=== PATIENT | female | born 1995 | race Native Hawaiian/Other Pacific Islander ===

== ENCOUNTER 2020-01-12 01:04 | Emergency (ER) | payer MEDICAID ==
[~2020-01-12] VITALS: Ht 175.3 cm; Wt 48.6 kg
[2020-01-12 01:08] VITALS: TEMP 98.4
[2020-01-12] MEDS ORDERED: FLAGYL500 MG PO (02:57)
[2020-01-12 03:10] VITALS: BP 114/66; PULSE 65
== END 2020-01-12 03:11 | disposition home or self-care (01) ==
LOC: COL.ER 01:04
DX: O03.9 Complete or unspecified spontaneous abortion without complication (principal); Z3A.09 9 weeks gestation of pregnancy; Z87.891 Personal history of nicotine dependence

== ENCOUNTER → 2020-01-12 | Outpatient (CLI) | payer MEDICAID ==
[~2020-01-12] MED LIST: FLAGYL500 MG PO
== END ==
LOC: COL.RAD 13:16
DX: O26.851 Spotting complicating pregnancy, first trimester (principal); Z3A.08 8 weeks gestation of pregnancy

== ENCOUNTER 2023-03-10 16:41 | Outpatient (CLI) | payer MEDICAID ==
[~2023-03-10] VITALS: Ht 172.7 cm; Wt 65.5 kg
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
[2023-03-10 17:30] VITALS: BP 111/56; PULSE 63; TEMP 97.7
[2023-03-10] MEDS ORDERED: PRENATAL (17:44)
[2023-03-10] MEDS ORDERED: LR 1,000 ML IV PRN (17:45)
--- NOTE | 2023-03-10 18:28 | NUR ---
Pt reports she is feeling better after drinking water. SVE done with no change, no bleeding noted on exam and ctx pattern spacing out.
--- NOTE | 2023-03-10 18:35 | NUR ---
Discharge instructions, follow up care and labor precautions reviewed with pt. Pt verbalized an understanding, agreed with the plan and states no questions or concerns at this time.
== END 2023-03-10 18:35 | disposition home or self-care (01) ==
LOC: LDRO 16:41
DX: Z34.93 Encounter for supervision of normal pregnancy, unspecified, third trimester (principal); Z3A.28 28 weeks gestation of pregnancy

== ENCOUNTER 2023-04-02 18:00 | Outpatient (CLI) | payer MEDICAID ==
[~2023-04-02] VITALS: Ht 172.7 cm; Wt 72.3 kg
[~2023-04-02 18:00] MED LIST changes: +PRENATAL
--- NOTE | 2023-04-02 18:10 | NUR ---
PT WHEELED TO UNIT ALONE. REPORTS CTX Q10-15 MINUTES. NO LOF. POSITIVE MOVEMENT. SVE /-3. PT TOLERATED WELL.
[2023-04-02] MEDS ORDERED: PROMETRIUM200 M1 PO (18:16)
[2023-04-02] MEDS ORDERED: ENDOMETRIN100 MG VG (18:16)
[2023-04-02 18:30] VITALS: BP 116/61; PULSE 86
[2023-04-02] MEDS ORDERED: LR 1,000 ML IV PRN (18:30)
--- NOTE | 2023-04-02 18:30 | NUR ---
Pt arrives to unit for c/o of ctx. Flakita Holm RN obtains cervical exam and reports pt is /3. Orders recieved from Dr Gutierrez to place an IV and give the pt a liter of LR to hydrate pt. Pt agreeable to the plan of care and questions answered.
[2023-04-02 19:30] VITALS: BP 111/62; PULSE 71
[2023-04-02 20:00] VITALS: BP 125/68; PULSE 65
--- NOTE | 2023-04-02 20:00 | NUR ---
1930: Dr Gutierrez on the unit, assessing the heart rate tracing at this time. Difficulty obtaining heart rate due to frequent movements. Pt reports feeling these very frequent movements by the fetus. Pulse oximeter placed on pt to monitor maternal pulse. 194: Some irritability traced by the TOCO during this tracing. Dr Gutierrez gives verbal order for pt to be sent home.
== END 2023-04-02 20:20 | disposition home or self-care (01) ==
LOC: LDRO 18:00
DX: Z34.93 Encounter for supervision of normal pregnancy, unspecified, third trimester (principal); Z3A.32 32 weeks gestation of pregnancy
CPT/HCPCS: J7120

== ENCOUNTER 2023-04-15 00:25 | Outpatient (CLI) | payer MEDICAID ==
[~2023-04-15] VITALS: Ht 172.7 cm; Wt 72.3 kg
[~2023-04-15 00:25] MED LIST changes: +ENDOMETRIN100 MG VG; +PROMETRIUM200 M1 PO
[2023-04-15 00:30] VITALS: TEMP 98.2
--- NOTE | 2023-04-15 00:30 | NUR ---
PT AMBULATORY TO ROOM WITH PT'S MOTHER ASSISTING. PT CHANGED INTO CLEAN GOWN AND SHOWED THIS RN THE PAD WITH BRIGHT RED BLOOD ON IT, ABOUT THE SIZE OF A HALF DOLLAR. THE PATIENT STATES THAT SHE HAS FELT GOOD MOVEMENT, NOT FELT MANY CONTRACTIONS ASIDE FROM WHAT SHE BELIEVES TO BE JEAN CLAUDE STUART AND HAS HAD NO LEAKING OF FLUID. D/T BRIGHT RED BLOOD BEING VISIBLE, CLARIFIED WITH IF SHE WOULD LIKE THIS RN TO PERFORM SVE, APPROVED D/T NO HX OF PLACENTAL ISSUES. SVE IS 2/-2, NO BRAYAN RED BLOOD ON EXAM GLOVE OTHER THAN NORMAL BLEEDING FROM CERVICAL EXAM. PLAN OF CARE DISCUSSED WITH PT WHO VERBALIZED UNDERSTANDING.
[2023-04-15] MEDS ORDERED: LR 1,000 ML IV PRN (00:45)
[2023-04-15] MEDS ORDERED: ASPIRIN 81M81 MG/TA2 PO (00:49)
[2023-04-15] MEDS ORDERED: Betamethasone Acetate/Na Phos 6 MG/ML 5 ML MDV IM SCH (01:15)
--- NOTE | 2023-04-15 01:30 | NUR ---
PLAN OF CARE CHANGED TO THE PATIENT RCVING IV FLUIDS AND BETAMETHASONE. EXPLAINED TO PATIENT PLAN OF CARE. THE PATIENT AGREES WITH PLAN AND VERBALIZED UNDERSTANDING.
--- NOTE | 2023-04-15 02:20 | NUR ---
D/T CONTINUED CONTRACTIONS, THIS RN INSTRUCTED PER ROLES TO PERFORM SVE, AND GIVE TERBUTALINE. SVE IS UNCHANGED. TERB GIVEN AND WILL MONITOR PATIENT.
[2023-04-15 02:30] VITALS: BP 127/74; PULSE 75; TEMP 98.2
[2023-04-15] MEDS ORDERED: Terbutaline 1 MG/ML 1 ML AMP SQ ONE (02:30)
[2023-04-15 03:10] VITALS: PULSE 123
--- NOTE | 2023-04-15 03:30 | NUR ---
DISCHARGE ORDERS RCVD AND PT VERBALIZED UNDERSTANDING OF DISCHARGE INFORMATION. KNOWS TO RETURN FOR BETAMETHASONE TONIGHT BETWEEN 8-10PM AND DRINK PLENTY OF FLUIDS.
== END 2023-04-15 03:30 | disposition home or self-care (01) ==
LOC: LDRO 00:25 → LDR 00:39 → LDRO 03:30
DX: Z34.90 Encounter for supervision of normal pregnancy, unspecified, unspecified trimester (principal)
CPT/HCPCS: OP; J0702; J3105; J7120